=== PATIENT | male | born 1995 | race Caucasian/White ===

== ENCOUNTER 2017-09-15 16:28 | Inpatient (IN) | payer BC ==
[~2017-09-15] VITALS: Ht 175.2 cm; Wt 89.8 kg
--- NOTE | ~2017-09-15 | PROC NOTE ---
[place], [place] PROCEDURE NOTE NAME: [id number] UNIT #: [id number] ROOM: 408 DOCTOR: RONNI FERRARA MD BIRTHDATE: [birth year] DOS: 09/16/2017 PREOPERATIVE DIAGNOSIS: Right antecubital fossa foreign body. POSTOPERATIVE DIAGNOSIS: Right antecubital fossa foreign body. PROCEDURE: Excision of right antecubital fossa foreign body. SURGEON: Ronni Ferrara MD [employer] INTERPRETIVE SPECIALIST: MS4. ANESTHESIA: MAC. INDICATIONS: This is a 22-year-old patient who is a drug addict who has a broken tip of a hypodermic needle in his right antecubital fossa who is here for the above-mentioned procedure. The procedure and its complications were explained to the patient in detail preoperatively. Complications that were discussed included but were not limited to bleeding, infection, hematoma/seroma/abscess formation and prolonged pain. He agreed to proceed. DESCRIPTION OF PROCEDURE: After identifying the patient, the patient was brought to the operating suite and laid in the supine position. After IV sedation was administered, a timeout procedure was called and the parts were then painted and draped in the usual sterile fashion. An incision over the area of the foreign body was made. The skin and the subcutaneous tissue were incised. Hemostasis was achieved with the help of electrocautery and the foreign body was removed in its entirety and sent for histopathological diagnosis. Thereafter, the subcutaneous tissue was irrigated and approximated with 3-0 Vicryl in interrupted fashion and skin edges approximated with the help of 4-0 Vicryl in a subcuticular running fashion. Dressing was placed. The patient tolerated the procedure well and was taken to the recovery room in a stable fashion. There were no complications. Dr. Ronni Ferrara, the attending surgeon, was present throughout the operating case. Ronni Ferrara MD CM:PROCNOTE:PROCEDURE NOTE [id number] RONNI FERRARA MD
[2017-09-15 16:36] VITALS: BP 124/76
[2017-09-15 16:49] LABS: BASO % 0.5 % (0.0-1.0); EOS # 0.1 10*3/uL (0.0-0.4); EOS % 1.5 % (1.0-4.0); HEMATOCRIT 43.4 % (42.0-52.0); HEMOGLOBIN 14.7 g/dl (14.0-18.0); LYMPH % 37.3 % (27.0-41.0); MEAN CELL VOLUME 81.7 fl (80.0-94.0); MEAN CORPUSCULAR HGB 27.7 pg (27.0-31.0); MEAN CORPUSCULAR HGB CONC 33.9 g/dl (33.0-37.0); MONO # 0.6 10*3/uL (0.1-1.0); MONO % 7.6 % (3.0-9.0); NEUT # 4.3 10*3/uL (2.3-7.9); NEUT % 52.9 % (47.0-73.0); PLATELET COUNT AUTOMATED 298 10*3/uL (130-400); RED BLOOD COUNT 5.31 10*6/uL (4.50-5.90); RED CELL DISTRI WIDTH 13.5 % (0-14.5)
[2017-09-15 17:04] LABS: ALBUMIN 4.6 gm/dl (3.1-4.5); ALKALINE PHOSPHATASE 93 U/L (45-117); BUN 9 mg/dl (7-24); CHLORIDE 106 mmol/L (98-107); CREATININE 0.81 mg/dL (0.70-1.30); POTASSIUM 3.8 mmol/L (3.5-5.1); SGOT/AST 63 IU/L (3-35); SGPT/ALT 172 U/L (12-78); SODIUM 138 mmol/L (136-145); TOTAL PROTEIN 8.6 gm/dL (6.4-8.2)
[2017-09-15 17:05] LABS: ACETAMINOPHEN (TYLENOL) < 2.0 ug/ml (10-30); ETHYL ALCOHOL < 3.0 mg/dl (<3)
[2017-09-15 17:12] LABS: THYROID STIM HORMONE (HS) 0.424 uIU/ml (0.358-4.75)
[2017-09-15 17:41] LABS: BILIRUBIN NEGATIVE (NEGATIVE); BLOOD NEGATIVE (NEGATIVE); CLARITY SL CLOUDY (CLEAR); COLOR YELLOW (YELLOW); GLUCOSE NEGATIVE (NEGATIVE); KETONE NEGATIVE (NEGATIVE); LEUKO ESTERASE NEGATIVE (NEGATIVE); NITRITE NEGATIVE (NEGATIVE); SPECIFIC GRAVITY 1.025 (1.005-1.030); UROBILINOGEN 0.2 E.U./dl (0.2-1.0)
[2017-09-15 17:51] LABS: URINE AMPHETAMINES < 1000 (1000ng/ml); URINE BARBITURATES < 200 (200ng/ml); URINE BENZODIAZEPINES < 200 (200ng/ml); URINE CANNABINOIDS (THC) < 50 (50ng/ml); URINE COCAINE > 300 (300ng/ml); URINE METHADONE < 300 (300ng/ml); URINE OPIATES > 300 (300ng/ml); URINE PHENCYCLIDINE < 25 (25ng/ml)
[2017-09-15 17:55] LABS: BACTERIA 1+; EPITHELIAL CELLS TNTC
[2017-09-15 18:00] VITALS: BP 115/62
[2017-09-15 20:00] VITALS: BP 126/59
[2017-09-16] VITALS (9 sets, daily range): BP systolic 97–126; BP diastolic 51–67
[2017-09-17] VITALS: BP 117/56
[2017-09-17 08:00] VITALS: BP 122/86
[2017-09-17 10:06] LABS: HEPATITIS B SURFACE AG Negative (Negative)
[2017-09-17 12:00] VITALS: BP 105/51
[2017-09-17 15:42] LABS: HEPATITIS C VIRUS ANTIBODY >11.0 s/co (0.0-0.9)
[2017-09-17 16:00] VITALS: BP 126/78; BP 130/52
[2017-09-17 20:00] VITALS: BP 124/64
[2017-09-18] VITALS: BP 119/64
[2017-09-18 07:01] LABS: BASO % 0.4 % (0.0-1.0); EOS # 0.2 10*3/uL (0.0-0.4); EOS % 2.3 % (1.0-4.0); HEMATOCRIT 40.8 % (42.0-52.0); HEMOGLOBIN 13.6 g/dl (14.0-18.0); LYMPH # 3.6 10*3/uL (1.3-4.4); LYMPH % 49.1 % (27.0-41.0); MEAN CELL VOLUME 83.3 fl (80.0-94.0); MEAN CORPUSCULAR HGB 27.8 pg (27.0-31.0); MEAN CORPUSCULAR HGB CONC 33.3 g/dl (33.0-37.0); MEAN PLATELET VOLUME 9.3 fl (9.6-12.3); MONO # 0.7 10*3/uL (0.1-1.0); MONO % 9.6 % (3.0-9.0); NEUT # 2.8 10*3/uL (2.3-7.9); NEUT % 38.2 % (47.0-73.0); PLATELET COUNT AUTOMATED 253 10*3/uL (130-400); RED CELL DISTRI WIDTH 13.3 % (0-14.5); WHITE BLOOD COUNT 7.3 10*3/uL (4.8-10.8)
[2017-09-18 07:30] LABS: CREATININE 0.71 mg/dL (0.70-1.30)
[2017-09-18 08:00] VITALS: BP 136/62
[2017-09-18] MEDS ORDERED: ATARAX,VISTARIL50 MG PO (10:31)
[2017-09-18] MEDS ORDERED: ROPINIROLE HYD0.5 MG PO (10:31)
[2017-09-18 12:00] VITALS: BP 128/78
== END 2017-09-18 14:23 | disposition home or self-care (01) | DRG 605 ==
LOC: ED 16:28 → 4E 17:07
PROVIDERS: Emergency Medicine; Nurse Practitioner Family; Student in an Organized Health Care Education/Training Program
PROC: 0JCG0ZZ Extirpation of Matter from Right Lower Arm Subcutaneous Tissue and Fascia, Open Approach (ICD-10-PCS; principal; 2017-09-16)
DX: S50.351A Superficial foreign body of right elbow, initial encounter (principal); B19.20 Unspecified viral hepatitis C without hepatic coma; F11.23 Opioid dependence with withdrawal; F12.10 Cannabis abuse, uncomplicated; F17.210 Nicotine dependence, cigarettes, uncomplicated; F19.10 Other psychoactive substance abuse, uncomplicated; R74.0 Nonspecific elevation of levels of transaminase and lactic acid dehydrogenase [LDH]; F14.10 Cocaine abuse, uncomplicated; Z71.6 Tobacco abuse counseling; Z78.9 Other specified health status; Z90.49 Acquired absence of other specified parts of digestive tract